=== PATIENT | male | born 1940 | race Caucasian/White ===

== ENCOUNTER 2018-09-30 08:43 | Inpatient (IN) ==
[2018-09-30] MEDS ORDERED: ONDANSETRON INJ 2 MG/ML 2 ML VIAL IV PRN (13:08)
[2018-09-30] MEDS ORDERED: POLYETHYLENE (MIRALAX) 17 GM PACK PO PRN (13:08)
[2018-09-30] MEDS ORDERED: ACETAMINOPHEN 325 MG TAB PO PRN (13:08)
--- NOTE | 2018-09-30 13:56 | History & Physical Report ---
Date of Service September 30, 2018 Assessment & Plan (1) Pneumonia: treated with Rocephin and Zithromax at [facility] no fever, WBC normal for two days will continue Rocephin and Zithromax for 5 day course total Duoneb only producing clear sputum, no blood (2) COPD exacerbation: no wheezing currently, reportedly had wheezing in ED at [facility] will continue Solu Medrol 40 q12, titrate to 40mg daily tomorrow Duoneb QID (3) Abnormal CT scan, chest: report of spiculated density in RLL, 2.8 x 2.8 x 5.5 h/o smoking 1ppd for many years will consult Dr. Hairston for recommendations discussed with Tamir Palacios after he and Dr. Hairston saw patient for now, will treat infection their office will arrange for repeat CT chest in a few months no hemoptysis, no weight loss (4) Chronic respiratory failure with hypoxia: on 2L chronically at home currently breathing stable, no distress (5) Atrial fibrillation: paced on EKG takes Amiodarone and Lopressor chronically hold Coumadin due to elevated INR (6) H/O cardiac pacemaker: paced (7) BPH (benign prostatic hyperplasia): continue Flomax (8) GERD (gastroesophageal reflux disease): continue Ranitidine (9) Supratherapeutic INR: no signs of bleeding unclear etiology, perhaps not eating well recently will hold Coumadin, repeat INR in the AM History of Present Illness Chief Complaint: I couldn't breathe Primary Care Provider: Carolann Skelton MD 78 yo male with history of COPD and chronic hypoxia, presented to [facility] due to two days of increased dyspnea, increased cough, sputum production. He denies any fever/chills or sweats. Reports that his appetite has been normal for him. No weakness. He has been moving bowels and urinating normally. He denies any significant weight loss in the past several months. He has a significant smoking history for one ppd for at least 40 years, says he quit when he was diagnosed with COPD. He denies any hemoptysis. At [facility] his WBC was normal, Cr was 1.0. A CXR, two views, shows bibasilar infiltrates. The right lower lobe appeared to have a spiculated consolidation concerning for malignancy. CT chest showed a 2.8 x 2.8 x 5.5 cm density that was a little more dense than fluid. A transfer was requested for [facility] since [facility] does not have pulmonology or thoracic surgery in house. Patient arrived in stable condition, no distress. Had no specific complaints except cough which was now non-productive and continued dyspnea. He had been treated with Rocephin and Zithromax at [facility]. Allergies Allergy/AdvReac Type Severity Reaction Status Date / Time No Known Allergies Allergy Unverified 05/22/15 19:34 Home Medications Home Medications Medication Instructions Recorded Confirmed Type ALBUTEROL SOLN (Ventolin Soln) 1 vial INHALATION 3-4XD PRN #375 05/22/15 History AMIODARONE HCL (PACERONE) 100 mg PO DAILY #30 05/22/15 History ASCORBIC ACID 500 mg PO DAILY #0 tab 05/22/15 History ASPIRIN (ASPIRIN EC) 81 mg PO DAILY #0 05/22/15 History Albuterol (Ventolin) 2 puff INHALATION Q4 PRN #18 05/22/15 History BUDESONIDE/FORMOTEROL FUMARATE 2 puff INHALATION BID #10 05/22/15 History (Symbicort 80/4.5 Inhaler) FERROUS SULFATE 325 mg PO DAILY #0 05/22/15 History Furosemide 40 mg PO DAILY #30 05/22/15 History Gabapentin 300 mg PO TID #90 05/22/15 History HYDROCORTISONE (PROCTOSOL HC) 1 applic IN 2-4XD PRN 7 Days 05/22/15 History #28.35 g LEVOTHYROXINE SODIUM 50 mcg PO DAILY #30 05/22/15 History MOMETASONE FUROATE (NASAL) 1 spray WALLY congestion #0 btl 05/22/15 History (NASONEX) Metoprolol Tartrate (Lopressor) 25 mg PO BID #30 05/22/15 History (Lopressor) POTASSIUM CHLORIDE MICROENCAPS 10 meq PO DAILY #30 05/22/15 History (POTASSIUM CHLORIDE ER) PRAVASTATIN SODIUM 40 mg PO HS #30 05/22/15 History Ranitidine HCl 150 mg PO DAILY #30 05/22/15 History TIOTROPIUM BROMIDE (Spiriva 1 puff INHALATION DAILY #30 05/22/15 History Handihaler) Tamsulosin HCl 0.4 mg PO DAILY #30 05/22/15 History WARFARIN SODIUM 3 mg PO QPM 90 Days #90 tab 05/22/15 History Levofloxacin 250 mg PO DAILY@11 7 Days #0 tab 05/28/15 Rx PREDNISONE (STERAPRED 12 DAY) 1 pkg PO UD #1 05/28/15 Rx Past Med/Surg History Medical History Atrial fibrillation COPD (chronic obstructive pulmonary disease) HTN (hypertension) Pacemaker Family History Other Heart disease Social History Current Living Situation: Alone Other Information That Helps Us Care for You: No Feels Safe at Home: Yes Safety Concerns: Feels Safe At This Time Smoking Status: Former smoker Tobacco Type: cigarettes Years Smoked: 40 Cigarettes per Day: 20 Do You Dip or Chew Tobacco: No Hx Alcohol Use: No Hx Substance Use: No Beliefs That Will Affect Care: None Preferred Language: Upper Sorbian Communication Ability: Effective Review of Systems All systems reviewed & are unremarkable except as noted in HPI & below Constitutional: no fever, no chills, no sweats, no fatigue and no weakness Respiratory: + cough, + dyspnea, + dyspnea on exertion, + sputum production and + wheezing; no hemoptysis Cardiovascular: + chest pain (lower left side, pain with cough), + dyspnea, + dyspnea at rest and + dyspnea on exertion; no orthopnea, no palpitations, no syncope and no edema Gastrointestinal: no abdominal pain, no nausea, no vomiting, no constipation and no diarrhea/loose stools Genitourinary (Male): no dysuria and no difficulty urinating Integumentary: no rash Physical Exam 2 Constitutional: well nourished and + thin; no acute distress Eyes: PERRL, conjunctivae normal, anicteric sclerae ENMT: external ear and nose normal, oropharynx normal Neck: trachea midline, no thyromegaly Respiratory: normal respiratory effort, normal percussion and + cough; no respiratory distress and does not use accessory muscles Auscultation: + diminished lung sounds and + crackles (right base) Cardiovascular: Rate/Rhythm: regular rate and regular rhythm Heart Sounds: normal S1 and normal S2; no murmur Vessels: normal peripheral pulses; no JVD Extremities: normal capillary refill Gastrointestinal (Abdomen): normal bowel sounds, soft, nontender, no hepatosplenomegaly Musculoskeletal: no cyanosis or clubbing, extremities motor strength 5/5 Skin: no rashes, warm and dry Neurologic: patellar DTR's 2+ bilat, sensation intact and PERRL, EOMI, accommodation nl, no face palsy, no dysarthria Lymphatic: no cervical or axillary lymphadenopathy Results & Data Laboratory Results Laboratory Results - last 24 hr 09/30/18 09/30/18 14:19 Unknown PT 70.0 H INR 7.8 H* Nasal Screen MRSA (PCR) Negative Medications Administered Current Inpatient Medications Acetaminophen (Tylenol) 650 mg PO Q4H PRN PRN Reason: pain/fever Stop: 10/30/18 13:07 Albuterol (Duoneb) 3 ml NEB Q2R PRN PRN Reason: Dyspnea Stop: 10/30/18 13:20 Albuterol (Duoneb) 3 ml NEB QIDR EMI Stop: 10/30/18 15:59 Last Admin: 09/30/18 19:19 Dose: 3 ml Amiodarone HCl (Cordarone) 100 mg PO QAM EMI Stop: 10/31/18 08:59 Aspirin (Ecotrin Ectab) 81 mg PO QAM EMI Stop: 10/31/18 08:59 Azithromycin (Zithromax) 500 mg PO QAM EMI Stop: 10/08/18 08:59 Furosemide (Lasix) 40 mg PO QAM EMI Stop: 10/31/18 08:59 Gabapentin (Neurontin) 300 mg PO TID EMI Stop: 10/30/18 13:59 Last Admin: 09/30/18 19:32 Dose: 300 mg Ceftriaxone Sodium 1,000 mg/ (Dextrose) 60 mls @ 100 mls/hr IV DAILY EMI Stop: 10/08/18 08:59 Methylprednisolone 40 mg/ (Syringe) 0.64 mls @ 1.5 mls/min IV Q12 EMI Stop: 10/30/18 20:59 Last Admin: 09/30/18 19:25 Dose: 1.5 mls/min Levothyroxine Sodium (Synthroid) 50 mcg PO DAILYBB EMI Stop: 10/31/18 06:29 Metoprolol Tartrate (Lopressor) 25 mg PO BID EMI Stop: 10/30/18 20:59 Last Admin: 09/30/18 19:32 Dose: 25 mg Ondansetron HCl (Zofran) 4 mg IV Q6H PRN PRN Reason: Nausea Stop: 10/30/18 13:07 Polyethylene Glycol (Miralax Powder Packet) 17 gm PO DAILY PRN PRN Reason: Constipation Stop: 10/30/18 13:07 Ranitidine HCl (Zantac) 150 mg PO QAM EMI Stop: 10/31/18 08:59 Tamsulosin HCl (Flomax) 0.4 mg PO QAM [facility] Stop: 10/31/18 08:59 Code Status & VTE Plan Code Status full code VTE Prophylaxis Plan VTE Prophylaxis will be ordered: Yes
[2018-09-30 14:55] LABS: INR 7.8 (0.9-1.1)
[2018-09-30] MEDS: ALBUT/IPRATROP 3MG/0.5MG NEB 3 ML VIAL NEB SCH ×2 (15:19→19:19)
[2018-09-30] MEDS: GABAPENTIN 300 MG CAP PO SCH ×2 (15:41→19:32)
[2018-09-30] MEDS: methylPREDNISolone 40 MG in SYRINGE 0 ML IV SCH (19:25)
[2018-09-30] MEDS: METOPROLOL TARTRATE 25 MG TAB PO SCH (19:32)
--- NOTE | 2018-09-30 19:59 | XRay Report ---
XR chest 1V portable CLINICAL HISTORY: sob dyspnea COMPARISON STUDY: 09/29/2018 Katie Ward FINDINGS: Emphysematous and chronic fibrotic change throughout both hemithoraces considered stable. M ild stable cardiomegaly. Prior median sternotomy. Bipolar cardiac pacemaker. Slight blunting of the l ateral costophrenic angles unchanged. IMPRESSION: Chronic and emphysematous change. No acute or interval process. The above report was generated using voice recognition software. It may contain grammatical, syntax or spelling errors. Electronically signed by: Orlando Webster M.D. 09/30/2018 7:58 PM
[2018-09-30] MEDS ORDERED: FUROSEMIDE 20 MG in SYRINGE 0 ML IV ONE (20:15)
--- NOTE | 2018-09-30 21:39 | Consultation Report ---
DATE OF CONSULTATION: 09/30/2018 REASON FOR CONSULTATION: Lung nodules. HISTORY OF PRESENT ILLNESS: This is a 78-year-old male who has a very long history of cigarette smoking with terrible bullous emphysema who presented to [facility] with treatment for an upper respiratory infection. It is unclear whether this was felt to be a pneumonia or simply an exacerbation of his COPD. A CT scan was obtained and some abnormalities were noted and I was asked to evaluate him from a surgical standpoint. PAST MEDICAL HISTORY: 1. Gastroesophageal reflux disease. 2. Atrial fibrillation. 3. Benign prostatic hypertrophy. 4. Chronic obstructive pulmonary disease with bullous emphysema and chronic oxygen use. 5. Hypothyroidism. 6. Hyperlipidemia. PAST SURGICAL HISTORY: 1. Insertion of a left infraclavicular pacemaker. 2. Open heart surgery with mitral and tricuspid valve surgery. ALLERGIES: No known drug allergies. MEDICATIONS: 1. Inhalers. 2. Amiodarone. 3. Aspirin. 4. Symbicort. 5. Ferrous sulfate. 6. Gabapentin. 7. Lasix. 8. Levofloxacin. 9. Synthroid. 10. Metoprolol. 11. Nasonex. 12. Pravastatin. 13. Potassium supplements. 14. Prednisone (tapering dose). 15. Ranitidine. 16. Flomax. 17. Spiriva. 18. Coumadin. SOCIAL HISTORY: The patient worked in a [employer]. He smoked from age 17 to probably his 60s. He has severe emphysema. He is . He lives in [place] in an apartment. He is followed by Dr. Carolann Skelton. FAMILY MEDICAL HISTORY: The patient is the youngest of 11. He had 7 brothers, all of whom have , mostly due to heart. He has 2 sisters, still living. He is a poor historian, does not know why they . His father at age 50 from his "heart." He thinks his mother may have in her 70s from her heart. He has 3 children. He states they are "not helping," but he could not specify as to what their medical problems were. REVIEW OF SYSTEMS: The patient is actually painfully thin, but states he has not lost any weight. He has been more short of breath. I am quite concerned about his oxygen levels. He states he has been eating "okay." He denies nausea or vomiting. He has had no neurologic events, although he appears a bit confused to me and disoriented. He denies any hearing or visual changes. He has had no GI or symptoms. He has had no skin breakdown. PHYSICAL EXAMINATION: GENERAL: This is a 5-feet 5-inch, 120-pound male who is awake and alert, but a bit disoriented. HEENT: He wears glasses. His sclerae are pale but anicteric. He has bilateral arcus senilis. He has no nasolabial flattening. He has bilateral denture plates. His dentures do not fit well. Makes it is a bit difficult to understand him. NECK: He has no carotid bruits. He has no neck vein distention or thyromegaly. I detect no lymphadenopathy. LUNGS: He has markedly decreased breath sounds bilaterally. HEART: He has a regular rate and rhythm of his heart with a well-healed sternotomy incision with no click. He appears to have a regular rhythm but it may be paced. He has a well-healed left infraclavicular pacemaker. ABDOMEN: Flat, soft, nontender. EXTREMITIES: He has no peripheral edema or joint effusions or difficulty palpating pulses. NEUROLOGIC: He moves all extremities to command. DATA: I reviewed his CT scan and he has marked bullous emphysema, especially in the lower lobes. ASSESSMENT AND PLAN: It is unclear to me what these abnormalities represent. They could simply be inflammatory. Problem is they are bilateral and also the fact of the matter is this patient would not tolerate anything; he is so weak and essentially emaciated with terrible lungs. On 3 liters, his saturations are adequate, but he is really working to talk. He is using his accessory muscles. At this point, I would treat him with antibiotics and plan on repeating his CT scan in the future; however, it really does not matter what he has, I do not think he is a candidate for anything. I think a needle biopsy with a pneumothorax could prove problematic.
[2018-09-30] MEDS: ALBUT/IPRATROP 3MG/0.5MG NEB 3 ML VIAL NEB PRN (22:56)
[2018-10-01] MEDS: ALBUT/IPRATROP 3MG/0.5MG NEB 3 ML VIAL NEB PRN (05:30)
[2018-10-01] MEDS: LEVOTHYROXINE SODIUM 50 MCG TABLET PO SCH (06:06)
[2018-10-01 07:11] LABS: Hematocrit (blood only) 35.2 % (42-52); Immature Granulocytes # (auto) 0.06 K/uL (0.00-0.02); Immature Granulocytes % (auto) 0.5 %; Mean Corpuscular Hgb Conc 31.3 g/dL (32-36); Mean Platelet Volume 10.6 fL (7.4-10.4); Monocytes # (auto) 0.87 K/uL (0.11-0.59); Neutrophils # (auto) 10.99 K/uL (1.4-6.5); Neutrophils % (auto) 88.5 %; Platelet Count 241 K/uL (130-400); RDW Coefficient of Variation 13.4 % (11.5-14.5); RDW Standard Deviation 53.2 fL (36.4-46.3); Red Blood Count 3.29 M/uL (4.7-6.1); White Blood Count 12.42 K/uL (4.8-10.8)
[2018-10-01] MEDS: ALBUT/IPRATROP 3MG/0.5MG NEB 3 ML VIAL NEB SCH ×4 (07:12→19:32)
[2018-10-01 07:25] LABS: Prothrombin Time 48.8 Seconds (9.0-12.0)
[2018-10-01 07:33] LABS: INR 5.3 (0.9-1.1)
[2018-10-01 07:46] LABS: Albumin Level 2.7 gm/dl (3.4-5.0); BUN Creatinine Ratio 43.9 (10-20); Calcium 8.6 mg/dl (8.5-10.1); Creatinine Clr Calc Pharmacy 41.1 ml/min; Est GFR (African American) 70.3; Est GFR (Non-African American) 60.6
[2018-10-01 07:47] LABS: Albumin Globulin Ratio 0.8 (0.9-2); Bilirubin,Total 0.6 mg/dl (0.2-1); Globulin 3.4 gm/dl (2.5-4.0); Total Protein 6.1 gm/dl (6.4-8.2)
[2018-10-01] MEDS: AMIODARONE 200 MG TAB PO SCH (07:52)
[2018-10-01] MEDS: FUROSEMIDE 40 MG TAB PO SCH (07:52)
[2018-10-01] MEDS: AZITHROMYCIN 250 MG TAB PO SCH (07:54)
[2018-10-01] MEDS: ASPIRIN 81 MG ECTAB PO SCH (07:54)
[2018-10-01] MEDS: METOPROLOL TARTRATE 25 MG TAB PO SCH ×2 (07:54→20:55)
[2018-10-01] MEDS: GABAPENTIN 300 MG CAP PO SCH ×3 (07:54→20:55)
[2018-10-01] MEDS: TAMSULOSIN HCL 0.4 MG CAP PO SCH (07:55)
[2018-10-01] MEDS: methylPREDNISolone 40 MG in SYRINGE 0 ML IV SCH (08:28)
[2018-10-01] MEDS: cefTRIAXone SODIUM 1,000 MG in DEXTROSE 5% 50 ML IV SCH (08:28)
--- NOTE | 2018-10-01 13:39 | Family Medicine Progress Note ---
Date of Service October 01, 2018 Assessment & Plan (1) Pneumonia: treated with Rocephin and Zithromax at [facility]. Will continue Rocephin and Zithromax for 5 day course total -Duonebs as needed. -sputum culture -flutter valve/chest physiotherapy -will wean o2 as tolerated -pt/ot (2) COPD exacerbation: no wheezing currently, reportedly had wheezing in ED at [facility] -switched from solumedrol 40mg q12 to prednisone 40mg -Duoneb QID -pt/ot (3) Abnormal CT scan, chest: report of spiculated density in RLL, 2.8 x 2.8 x 5.5 h/o smoking 1ppd for ~ 20years Appreciate thoracic surgery recs- Dr. Hairston advises f/u outpt in a few months for repeat CT. Otherwise NTD. (4) Chronic respiratory failure with hypoxia: on 2L chronically at home currently breathing stable, no distress (5) Atrial fibrillation: paced on EKG takes Amiodarone and Lopressor chronically continue to hold Coumadin due to elevated INR (6) H/O cardiac pacemaker: paced (7) BPH (benign prostatic hyperplasia): continue Flomax (8) GERD (gastroesophageal reflux disease): continue Ranitidine (9) Supratherapeutic INR: -no signs of bleeding currently. -Called Dr. Skelton's office- He is on warfarin 5mg for 6 days and takes half a tabon Sundays every week. Last INR was 1/10 at a level of 1.01. -unclear etiology of currently supratherapeutic INR, perhaps not eating well recently will hold Coumadin, repeat INR in the AM (10) History of hemoptysis: -as above for supratherapeutic INR -will hold coumadin -assess need later for possible endoscopy (11) History of melena: -pt has a history of hemorrhoids. However, could be a sign of GI malignancy. -Per Dr. Skelton's office, 2011 colonoscopy showed no masses but medium sized external hemorrhoids with no evidence of thrombosis. -FOBT ordered today. Supervising Physician Co-Signing Physician Notes Patient seen and examined with Dr. Swanson. Agree with history, exam findings, assessment and plan as outlined with the following changes/updates: In brief, Mr. Giles is a 78 year old male transferred from [facility] for pneumonia and abnormal CT of the chest. Reviewed H&P. VS reviewed and stable. Labs reviewed. 1.Pneumonia. continue rocephin and azithro.. duonebs. Flutter valve. Wean O2 as able. 2. Lung mass. Some mild hemoptysis. Appreciate Dr. Sharma input. NTD. Repeat CT in a few months and follow up as an outpatient. 3.chronic resp failure. 2L O2 at home. Wean down to home dose as able. 4.supratherapeutic INR. Holding Coumadin. Home dose is 5mg Fri-Friday. 2.5mg Sat. Consider restarting at a lower TWD once INR starts to drift down to therapeutic range. 5.Elevated BUN. ?GI bleed. Recent c-scope in 2011 with external hemorrhoids. Other chronic issues stable. Dispo: pending clinical improvement. Subjective Mr. Giles states he's doing better today despite still having some SOB. Also admits to dark brown blood in stool for some time as well as periodic clots and blood when he coughs up phlegm. Has hx of hemorrhoids as well as a smoking history of 20 pack years. States he follows with Dr. Redd in [place] who put him on warfarin as well. Denies hematuria or hemoptysis. Physical Exam 2 Vital Signs (Past 24 Hours): Last Vital Signs Temp 36.8 C 10/01/18 07:30 Pulse 81 10/01/18 11:05 Resp 18 10/01/18 11:05 BP 111/57 L 10/01/18 07:30 Pulse Ox 96 10/01/18 11:05 General: Alert, oriented thin frail gentleman sitting in chair near bed. HEENT: NC/AT, PERRL, EOMI, oropharynx moist. Chest: Nontender to palpation. CV: RRR, Normal s1, s2. No murmurs appreciated Resp: Breath sounds decreased bilaterally, no increased effort of breathing. No crackles/rhonchi/rales. Abdomen: Firm, nontender, nondistended. No guarding. Extremities: No edema. Results & Data Laboratory Results Laboratory Results - last 24 hr 10/01/18 10/01/18 10/01/18 06:43 06:43 06:43 WBC 12.42 H RBC 3.29 L Hgb 11.0 L Hct 35.2 L MCV 107.0 H MCH 33.4 MCHC 31.3 L RDW Std Deviation 53.2 H RDW Coeff of Dorcas 13.4 Plt Count 241 MPV 10.6 H Immature Gran % (Auto) 0.5 Neut % (Auto) 88.5 Lymph % (Auto) 4.0 Piatt % (Auto) 7.0 Eos % (Auto) 0.0 Baso % (Auto) 0.0 Immature Gran # (Auto) 0.06 H Neut # (Auto) 10.99 H Lymph # (Auto) 0.50 L Piatt # (Auto) 0.87 H Eos # (Auto) 0.00 Baso # (Auto) 0.00 PT 48.8 H INR 5.3 H Sodium 137 Potassium 5.0 Chloride 101 Carbon Dioxide 34 H Anion Gap 2.0 L BUN 50 H Creatinine 1.15 Est Cr Clr Drug Dosing 41.1 Est GFR ( Amer) 70.3 Est GFR (Non-Af Amer) 60.6 BUN/Creatinine Ratio 43.9 H Glucose 135 H Calcium 8.6 Total Bilirubin 0.6 AST 36 ALT 27 Alkaline Phosphatase 59 Total Protein 6.1 L Albumin 2.7 L Globulin 3.4 Albumin/Globulin Ratio 0.8 L Medications Administered Home Medications ALBUTEROL SOLN (Ventolin Soln) 1 vial INHALATION 3-4XD PRN #375 05/22/15 [ History] AMIODARONE HCL (PACERONE) 100 mg PO DAILY #30 05/22/15 [History] ASCORBIC ACID 500 mg PO DAILY #0 tab 05/22/15 [History] ASPIRIN (ASPIRIN EC) 81 mg PO DAILY #0 05/22/15 [History] Albuterol (Ventolin) 2 puff INHALATION Q4 PRN #18 05/22/15 [History] BUDESONIDE/FORMOTEROL FUMARATE (Symbicort 80/4.5 Inhaler) 2 puff INHALATION BID #10 05/22/15 [History] FERROUS SULFATE 325 mg PO DAILY #0 05/22/15 [History] Furosemide 40 mg PO DAILY #30 05/22/15 [History] Gabapentin 300 mg PO TID #90 05/22/15 [History] HYDROCORTISONE (PROCTOSOL HC) 1 applic NC 2-4XD PRN 7 Days #28.35 g 05/22/15 [ History] LEVOTHYROXINE SODIUM 50 mcg PO DAILY #30 05/22/15 [History] MOMETASONE FUROATE (NASAL) (NASONEX) 1 spray WALLY congestion #0 btl 05/22/15 [ History] Metoprolol Tartrate (Lopressor) (Lopressor) 25 mg PO BID #30 05/22/15 [History] POTASSIUM CHLORIDE MICROENCAPS (POTASSIUM CHLORIDE ER) 10 meq PO DAILY #30 05/22 [History] PRAVASTATIN SODIUM 40 mg PO HS #05/22/15 [History] Ranitidine HCl 150 mg PO DAILY #30 05/22/15 [History] TIOTROPIUM BROMIDE (Spiriva Handihaler) 1 puff INHALATION DAILY #05/22/15 [ History] Tamsulosin HCl 0.4 mg PO DAILY #30 05/22/15 [History] WARFARIN SODIUM 3 mg PO QPM 90 Days #90 tab 05/22/15 [History] Levofloxacin 250 mg PO DAILY@11 7 Days #0 tab 05/28/15 [Rx] PREDNISONE (STERAPRED 12 DAY) 1 pkg PO UD #1 05/28/15 [Rx] Active Medications Acetaminophen (Tylenol) 650 mg PO Q4H PRN PRN Reason: pain/fever Stop: 10/30/18 13:07 Albuterol (Duoneb) 3 ml NEB Q2R PRN PRN Reason: Dyspnea Stop: 10/30/18 13:20 Last Admin: 10/01/18 05:30 Dose: 3 ml Albuterol (Duoneb) 3 ml NEB QIDR [facility] Stop: 10/30/18 15:59 Last Admin: 10/01/18 15:33 Dose: 3 ml Amiodarone HCl (Cordarone) [address] [facility] Stop: 10/31/18 08:59 Last Admin: 10/01/18 07:52 Dose: 100 mg Aspirin (Ecotrin Ectab) [address] [facility] Stop: 10/31/18 08:59 Last Admin: 10/01/18 07:54 Dose: 81 mg Azithromycin (Zithromax) [address] [facility] Stop: 10/08/18 08:59 Last Admin: 10/01/18 07:54 Dose: 500 mg Furosemide (Lasix) 40 mg PO QAM EMI Stop: 10/31/18 08:59 Last Admin: 10/01/18 07:52 Dose: 40 mg Gabapentin (Neurontin) 300 mg PO TID [facility] Stop: 10/30/18 13:59 Last Admin: 10/01/18 13:31 Dose: 300 mg Ceftriaxone Sodium 1,000 mg/ (Dextrose) 60 mls @ 100 mls/hr IV DAILY EMI Stop: 10/08/18 08:59 Last Infusion: 10/01/18 09:16 Dose: Infused Levothyroxine Sodium (Synthroid) 50 mcg PO DAILYBB EMI Stop: 10/31/18 06:29 Last Admin: 10/01/18 06:06 Dose: 50 mcg Metoprolol Tartrate (Lopressor) 25 mg PO BID [facility] Stop: 10/30/18 20:59 Last Admin: 10/01/18 07:54 Dose: 25 mg Ondansetron HCl (Zofran) 4 mg IV Q6H PRN PRN Reason: Nausea Stop: 10/30/18 13:07 Polyethylene Glycol (Miralax Powder Packet) 17 gm PO DAILY PRN PRN Reason: Constipation Stop: 10/30/18 13:07 Prednisone (Prednisone) 40 mg PO DAILY EMI Stop: 11/01/18 08:59 Ranitidine HCl (Zantac) 150 mg PO QAM [facility] Stop: 10/31/18 08:59 Last Admin: 10/01/18 07:54 Dose: 150 mg Tamsulosin HCl (Flomax) 0.4 mg PO QAM [facility] Stop: 10/31/18 08:59 Last Admin: 10/01/18 07:55 Dose: 0.4 mg Resident Activity Tracking Resident Involvement: Resident Care Provided Care Provided: Adult Hospital Medicine
[2018-10-02 05:49] LABS: Eosinophils # (auto) 0.01 K/uL (0-0.5); Eosinophils % (auto) 0.1 %; Hematocrit (blood only) 34.4 % (42-52); Immature Granulocytes # (auto) 0.04 K/uL (0.00-0.02); Immature Granulocytes % (auto) 0.3 %; Lymphocytes # (auto) 0.66 K/uL (1.2-3.4); Lymphocytes % (auto) 5.3 %; Mean Corpuscular Volume 106.8 fL (80-100); Mean Platelet Volume 10.7 fL (7.4-10.4); Monocytes # (auto) 1.17 K/uL (0.11-0.59); Monocytes % (auto) 9.4 %; Neutrophils # (auto) 10.57 K/uL (1.4-6.5); Neutrophils % (auto) 84.9 %; Platelet Count 237 K/uL (130-400); RDW Coefficient of Variation 13.5 % (11.5-14.5); RDW Standard Deviation 52.9 fL (36.4-46.3); Red Blood Count 3.22 M/uL (4.7-6.1); White Blood Count 12.45 K/uL (4.8-10.8)
[2018-10-02] MEDS: LEVOTHYROXINE SODIUM 50 MCG TABLET PO SCH (05:57)
[2018-10-02 06:11] LABS: INR 2.6 (0.9-1.1); Prothrombin Time 24.6 Seconds (9.0-12.0)
[2018-10-02 06:15] LABS: BUN Creatinine Ratio 52.2 (10-20); Calcium 8.3 mg/dl (8.5-10.1); Creatinine Clr Calc Pharmacy 45.9 ml/min; Est GFR (African American) 80.3; Est GFR (Non-African American) 69.3; Potassium 4.9 mmol/L (3.5-5.1)
[2018-10-02] MEDS: ALBUT/IPRATROP 3MG/0.5MG NEB 3 ML VIAL NEB SCH ×4 (07:06→19:07)
[2018-10-02] MEDS: cefTRIAXone SODIUM 1,000 MG in DEXTROSE 5% 50 ML IV SCH (07:55)
[2018-10-02] MEDS: GABAPENTIN 300 MG CAP PO SCH ×3 (07:55→20:53)
[2018-10-02] MEDS: METOPROLOL TARTRATE 25 MG TAB PO SCH ×2 (07:55→20:54)
[2018-10-02] MEDS: ASPIRIN 81 MG ECTAB PO SCH (07:56)
[2018-10-02] MEDS: AMIODARONE 200 MG TAB PO SCH (07:56)
[2018-10-02] MEDS: TAMSULOSIN HCL 0.4 MG CAP PO SCH (07:56)
[2018-10-02] MEDS: FUROSEMIDE 40 MG TAB PO SCH (07:57)
[2018-10-02] MEDS: predniSONE 20 MG TAB PO SCH (07:57)
[2018-10-02] MEDS: AZITHROMYCIN 250 MG TAB PO SCH (07:57)
--- NOTE | 2018-10-02 17:45 | Family Medicine Progress Note ---
Date of Service October 02, 2018 Assessment & Plan (1) Pneumonia: 78yo gentleman with pneumonia in setting of COPD exacerbation with concern for lung malignancy noted on CT. treated with Rocephin and Zithromax at [facility]. Will continue Rocephin and Zithromax for 5 day course total -Duonebs as needed. -sputum culture -flutter valve/chest physiotherapy -will wean o2 as tolerated -pt/ot (2) COPD exacerbation: no wheezing currently, reportedly had wheezing in ED at [facility] -switched from solumedrol 40mg q12 to prednisone 40mg -Duoneb QID -pt/ot (3) Abnormal CT scan, chest: report of spiculated density in RLL, 2.8 x 2.8 x 5.5 h/o smoking 1ppd for ~ 20years Appreciate thoracic surgery recs- Dr. Hairston advises f/u outpt in a few months for repeat CT. Otherwise NTD. (4) Chronic respiratory failure with hypoxia: on 2L chronically at home currently breathing stable, no distress (5) Atrial fibrillation: paced on EKG takes Amiodarone and Lopressor chronically continue to hold Coumadin due to elevated INR (6) H/O cardiac pacemaker: paced (7) BPH (benign prostatic hyperplasia): continue Flomax (8) GERD (gastroesophageal reflux disease): continue Ranitidine (9) Supratherapeutic INR: -no signs of bleeding currently. -Called Dr. Skelton's office- He is on warfarin 5mg for 6 days and takes half a tabon Sundays every week. Last INR was 1/10 at a level of 1.01. -Started on warfarin 4mg Oct 02 (dose decreased by 10%). Trend INRs -unclear etiology of currently supratherapeutic INR, perhaps not eating well recently (10) History of hemoptysis: -as above for supratherapeutic INR -will hold coumadin -assess need later for possible endoscopy (11) History of melena: -pt has a history of hemorrhoids. However, could be a sign of GI malignancy. -Per Dr. Skelton's office, 2011 colonoscopy showed no masses but medium sized external hemorrhoids with no evidence of thrombosis. -FOBT pending (12) Constipation: -started colace and miralax (13) Trouble swallowing: speech swallow eval. Supervising Physician Co-Signing Physician Notes Attending attestation Pt seen and examined in concert with Dr. Swanson. In agreement with the documented findings as noted in the resident documentation with any exceptions or additions as noted here. Patient reports mildly improved shortness of breath, though overall still fatigued and with productive cough. On examination, decreased breath sounds throughout with mild B/L LL rales. Abd NT/ND BS +ve COPD exacerbation in the setting of PNA � continue rocephin and Zithromax. S/S evaluation for ? aspiration episodes. Continue inhaler therapy and taper O2 as tolerated to baseline. Supratherapeutic INR with anemia � FOBT pending (deferred today), can restart at 4mg when negative Else per resident documentation above. Subjective Complaining of constipation. Otherwise no new issues except nursing concern for aspiration. Denies chest pain, SOB, abdominal pain. Review of Systems All systems reviewed & are unremarkable except as noted in HPI & below Physical Exam 2 Vital Signs (Past 24 Hours): Last Vital Signs Temp 36.9 C 10/02/18 15:35 Pulse 80 10/02/18 15:35 Resp 22 10/02/18 15:35 BP 124/70 10/02/18 15:35 Pulse Ox 98 10/02/18 15:35 General: Alert, oriented thin frail gentleman HEENT: NC/AT, PERRL, EOMI, oropharynx moist. Chest: Nontender to palpation. CV: RRR, Normal s1, s2. No murmurs appreciated Resp: Breath sounds decreased bilaterally, no increased effort of breathing. No crackles/rhonchi/rales. Abdomen: Firm, nontender, nondistended. No guarding. Extremities: No edema. Results & Data Laboratory Results Laboratory Results - last 24 hr 10/02/18 10/02/18 10/02/18 05:25 05:25 05:25 WBC 12.45 H RBC 3.22 L Hgb 11.0 L Hct 34.4 L MCV 106.8 H MCH 34.2 H MCHC 32.0 RDW Std Deviation 52.9 H RDW Coeff of Dorcas 13.5 Plt Count 237 MPV 10.7 H Immature Gran % (Auto) 0.3 Neut % (Auto) 84.9 Lymph % (Auto) 5.3 [place] % (Auto) 9.4 Eos % (Auto) 0.1 Baso % (Auto) 0.0 Immature Gran # (Auto) 0.04 H Neut # (Auto) 10.57 H Lymph # (Auto) 0.66 L [place] # (Auto) 1.17 H Eos # (Auto) 0.01 Baso # (Auto) 0.00 PT 24.6 H INR 2.6 H Sodium 140 Potassium 4.9 Chloride 102 Carbon Dioxide 36 H Anion Gap 3.0 BUN 54 H Creatinine 1.03 Est Cr Clr Drug Dosing 45.9 Est GFR ( Amer) 80.3 Est GFR (Non-Af Amer) 69.3 BUN/Creatinine Ratio 52.2 H Glucose 98 Calcium 8.3 L Medications Administered Home Medications ALBUTEROL SOLN (Ventolin Soln) 1 vial INHALATION 3-4XD PRN #375 05/22/15 [ History] AMIODARONE HCL (PACERONE) 100 mg PO DAILY #30 05/22/15 [History] ASCORBIC ACID 500 mg PO DAILY #0 tab 05/22/15 [History] ASPIRIN (ASPIRIN EC) 81 mg PO DAILY #0 05/22/15 [History] Albuterol (Ventolin) 2 puff INHALATION Q4 PRN #18 05/22/15 [History] BUDESONIDE/FORMOTEROL FUMARATE (Symbicort 80/4.5 Inhaler) 2 puff INHALATION BID #10 05/22/15 [History] FERROUS SULFATE 325 mg PO DAILY #0 05/22/15 [History] Furosemide 40 mg PO DAILY #30 05/22/15 [History] Gabapentin 300 mg PO TID #90 05/22/15 [History] HYDROCORTISONE (PROCTOSOL HC) 1 applic MI 2-4XD PRN 7 Days #28.35 g 05/22/15 [ History] LEVOTHYROXINE SODIUM 50 mcg PO DAILY #30 05/22/15 [History] MOMETASONE FUROATE (NASAL) (NASONEX) 1 spray WALLY congestion #0 btl 05/22/15 [ History] Metoprolol Tartrate (Lopressor) (Lopressor) 25 mg PO BID #30 05/22/15 [History] POTASSIUM CHLORIDE MICROENCAPS (POTASSIUM CHLORIDE ER) 10 meq PO DAILY #30 05/22 [History] PRAVASTATIN SODIUM 40 mg PO HS #30 05/22/15 [History] Ranitidine HCl 150 mg PO DAILY #30 05/22/15 [History] TIOTROPIUM BROMIDE (Spiriva Handihaler) 1 puff INHALATION DAILY #30 05/22/15 [ History] Tamsulosin HCl 0.4 mg PO DAILY #30 05/22/15 [History] WARFARIN SODIUM 3 mg PO QPM 90 Days #90 tab 05/22/15 [History] Levofloxacin 250 mg PO DAILY@11 7 Days #0 tab 05/28/15 [Rx] PREDNISONE (STERAPRED 12 DAY) 1 pkg PO UD #1 05/28/15 [Rx] Active Medications Acetaminophen (Tylenol) 650 mg PO Q4H PRN PRN Reason: pain/fever Stop: 10/30/18 13:07 Last Admin: 10/02/18 05:57 Dose: 650 mg Albuterol (Duoneb) 3 ml NEB Q2R PRN PRN Reason: Dyspnea Stop: 10/30/18 13:20 Last Admin: 10/01/18 05:30 Dose: 3 ml Albuterol (Duoneb) 3 ml NEB QIDR [facility] Stop: 10/30/18 15:59 Last Admin: 10/02/18 19:07 Dose: 3 ml Amiodarone HCl (Cordarone) 100 mg PO QAM [facility] Stop: 10/31/18 08:59 Last Admin: 10/02/18 07:56 Dose: 100 mg Aspirin (Ecotrin Ectab) 81 mg PO QAM [facility] Stop: 10/31/18 08:59 Last Admin: 10/02/18 07:56 Dose: 81 mg Azithromycin (Zithromax) 500 mg PO QAM [facility] Stop: 10/08/18 08:59 Last Admin: 10/02/18 07:57 Dose: 500 mg Furosemide (Lasix) 40 mg PO QAM [facility] Stop: 10/31/18 08:59 Last Admin: 10/02/18 07:57 Dose: 40 mg Gabapentin (Neurontin) 300 mg PO TID [facility] Stop: 10/30/18 13:59 Last Admin: 10/02/18 20:53 Dose: 300 mg Ceftriaxone Sodium 1,000 mg/ (Dextrose) 60 mls @ 100 mls/hr IV DAILY [facility] Stop: 10/08/18 08:59 Last Infusion: 10/02/18 08:50 Dose: Infused Levothyroxine Sodium (Synthroid) 50 mcg PO DAILYBB [facility] Stop: 10/31/18 06:29 Last Admin: 10/02/18 05:57 Dose: 50 mcg Metoprolol Tartrate (Lopressor) 25 mg PO BID [facility] Stop: 10/30/18 20:59 Last Admin: 10/02/18 20:54 Dose: 25 mg Ondansetron HCl (Zofran) 4 mg IV Q6H PRN PRN Reason: Nausea Stop: 10/30/18 13:07 Polyethylene Glycol (Miralax Powder Packet) 17 gm PO DAILY PRN PRN Reason: Constipation Stop: 10/30/18 13:07 Polyethylene Glycol (Miralax Powder Packet) 17 gm PO DAILY [facility] Stop: 11/02/18 08:59 Prednisone (Prednisone) 40 mg PO DAILY [facility] Stop: 11/01/18 08:59 Last Admin: 10/02/18 07:57 Dose: 40 mg Ranitidine HCl (Zantac) 150 mg PO QAM [facility] Stop: 10/31/18 08:59 Last Admin: 10/02/18 07:57 Dose: 150 mg Tamsulosin HCl (Flomax) 0.4 mg PO QAM [facility] Stop: 10/31/18 08:59 Last Admin: 10/02/18 07:56 Dose: 0.4 mg Warfarin Sodium (Coumadin) 4 mg PO DAILY@1600 [facility] Stop: 11/02/18 15:59
[2018-10-02] MEDS ORDERED: DOCUSATE SODIUM 100 MG CAP PO ONE (21:02)
[2018-10-02] MEDS ORDERED: WARFARIN SOD 4 MG TAB PO ONE (21:10)
[2018-10-03] MEDS: LEVOTHYROXINE SODIUM 50 MCG TABLET PO SCH (06:03)
[2018-10-03 06:56] LABS: Eosinophils # (auto) 0.06 K/uL (0-0.5); Eosinophils % (auto) 0.4 %; Hematocrit (blood only) 36.8 % (42-52); Hemoglobin 11.5 g/dL (14.0-18.0); Immature Granulocytes # (auto) 0.07 K/uL (0.00-0.02); Immature Granulocytes % (auto) 0.5 %; Lymphocytes # (auto) 1.39 K/uL (1.2-3.4); Lymphocytes % (auto) 10.2 %; Mean Corpuscular Hgb Conc 31.3 g/dL (32-36); Mean Corpuscular Volume 107.3 fL (80-100); Mean Platelet Volume 10.4 fL (7.4-10.4); Monocytes # (auto) 1.48 K/uL (0.11-0.59); Monocytes % (auto) 10.9 %; Neutrophils # (auto) 10.58 K/uL (1.4-6.5); Platelet Count 273 K/uL (130-400); RDW Coefficient of Variation 13.3 % (11.5-14.5); RDW Standard Deviation 52.5 fL (36.4-46.3); Red Blood Count 3.43 M/uL (4.7-6.1); White Blood Count 13.58 K/uL (4.8-10.8)
[2018-10-03 07:09] LABS: INR 1.4 (0.9-1.1); Prothrombin Time 14.2 Seconds (9.0-12.0)
[2018-10-03] MEDS: ALBUT/IPRATROP 3MG/0.5MG NEB 3 ML VIAL NEB SCH ×4 (07:22→18:47)
[2018-10-03 07:26] LABS: BUN Creatinine Ratio 50.2 (10-20); Calcium 8.3 mg/dl (8.5-10.1); Creatinine Clr Calc Pharmacy 48.7 ml/min; Est GFR (African American) 86.3; Est GFR (Non-African American) 74.5; Potassium 4.5 mmol/L (3.5-5.1)
[2018-10-03] MEDS: TAMSULOSIN HCL 0.4 MG CAP PO SCH (08:10)
[2018-10-03] MEDS: ASPIRIN 81 MG ECTAB PO SCH (08:10)
[2018-10-03] MEDS: AMIODARONE 200 MG TAB PO SCH (08:10)
[2018-10-03] MEDS: AZITHROMYCIN 250 MG TAB PO SCH (08:10)
[2018-10-03] MEDS: GABAPENTIN 300 MG CAP PO SCH ×3 (08:11→20:49)
[2018-10-03] MEDS: METOPROLOL TARTRATE 25 MG TAB PO SCH ×2 (08:11→20:48)
[2018-10-03] MEDS: FUROSEMIDE 40 MG TAB PO SCH (08:11)
[2018-10-03] MEDS: predniSONE 20 MG TAB PO SCH (08:11)
[2018-10-03] MEDS: POLYETHYLENE (MIRALAX) 17 GM PACK PO SCH (08:16)
[2018-10-03] MEDS: cefTRIAXone SODIUM 1,000 MG in DEXTROSE 5% 50 ML IV SCH (09:22)
[2018-10-03] MEDS: WARFARIN SOD 4 MG TAB PO SCH (15:56)
--- NOTE | 2018-10-03 19:25 | Family Medicine Progress Note ---
Date of Service October 03, 2018 Assessment & Plan (1) Pneumonia: 78yo gentleman with pneumonia in setting of COPD exacerbation with concern for lung malignancy noted on CT. 1) Pneumonia -continue Rocephin and Zithromax for 5 day course total -Duonebs as needed. -sputum culture- Gram negative bacilli. Sensitivities to follow -flutter valve/chest physiotherapy -will wean o2 as tolerated. Currently on 3L -pt/ot 2) COPD exacerbation -no wheezing currently -cont prednisone 40mg -Duoneb QID -pt/ot 3) Abnormal CT scan, chest: -report of spiculated density in RLL, 2.8 x 2.8 x 5.5 cm -h/o smoking 1ppd for ~ 20years -Dr. Hairston advises f/u outpt in a few months for repeat CT. Otherwise NTD. 4) Chronic respiratory failure with hypoxia -on 2L chronically at home currently breathing stable, no distress 5) Atrial fibrillation -paced on EKG -takes Amiodarone and Lopressor chronically -continue to hold Coumadin due to elevated INR 6) BPH -continue Flomax 7) GERD -continue Ranitidine 8) Supratherapeutic INR: -no signs of bleeding currently. -Called Dr. Skelton's office- He is on warfarin 5mg for 6 days and takes half a tab on Sundays every week. Last INR was 1/10 at a level of 1.01. -Started on warfarin 4mg Oct 02 (dose decreased by 10%). Trend INRs. Today 1.4 (downtrending) -unclear etiology of currently supratherapeutic INR, perhaps not eating well recently 9) History of melena -pt has a history of hemorrhoids. However, could be a sign of GI malignancy. -Per Dr. Skelton's office, 2011 colonoscopy showed no masses but medium sized external hemorrhoids with no evidence of thrombosis. -FOBT pending 10) Constipation -started colace and miralax 11) Trouble swallowing -speech swallow eval--> soft bite size diet recommended FULL DVT Prophylaxis: Warfarin 4 mg PO daily Supervising Physician Co-Signing Physician Notes Attending attestation Pt seen and examined in concert with Dr. Mendes. In agreement with the documented findings as noted in the resident documentation with any exceptions or additions as noted here. Patient reports gradual improvement in fatigue and overall shortness of breath. Tolerating POI well at bedside. Denies symptoms of aspiration on inquiry. On examination, decreased breathsounds throught worse at bases with minimal wheeze. S1/S2 nl RRR no MCG. COPD exacerbation with abnormal CT concerning for lung cancer � Complete course of azithromycin and prednisone 40mg. Duoneb q4P. S/S evaluation pending for evaluation of ?aspiration. Chest PT. 2L O2 baseline. Ranitidine for GI protection Supratherapeutic INR � decreased to 1.7, hgb stable. Awaiting FOBT. Continue warfarin @ 4mg Atrial fibrillation � continue amiodarone and metoprolol Else as noted in resident documentation. Subjective 78 y/o M found in bed this AM in NAD. Reports no acute overnight events. Denies any CP, wheezing, SOB, cough. Tolerating PO intake. No issues voiding. Pt has no other concerns or complaints. Physical Exam 2 Vital Signs (Past 24 Hours): Last Vital Signs Temp 36.8 C 10/03/18 15:00 Pulse 90 10/03/18 18:47 Resp 20 10/03/18 18:47 BP 114/77 10/03/18 15:00 Pulse Ox 96 10/03/18 18:47 Constitutional: WD/WN, vitals as above Eyes: PERRL, conjunctivae normal, anicteric sclerae ENMT: external ear and nose normal, oropharynx normal Respiratory: decreased breath sounds b/l Cardiovascular: RRR, no murmur, no edema Gastrointestinal (Abdomen): normal bowel sounds, soft, nontender, no hepatosplenomegaly Skin: no rashes, warm and dry Psychiatric: A+Ox3, euthymic affect Resident Activity Tracking Resident Involvement: Resident Care Provided Care Provided: Adult Hospital Medicine
[2018-10-04] MEDS: LEVOTHYROXINE SODIUM 50 MCG TABLET PO SCH (05:49)
[2018-10-04 06:03] LABS: Basophils # (auto) 0.01 K/uL (0-0.2); Basophils % (auto) 0.1 %; Eosinophils # (auto) 0.12 K/uL (0-0.5); Eosinophils % (auto) 1.1 %; Hematocrit (blood only) 36.3 % (42-52); Hemoglobin 11.2 g/dL (14.0-18.0); Immature Granulocytes # (auto) 0.04 K/uL (0.00-0.02); Immature Granulocytes % (auto) 0.4 %; Lymphocytes # (auto) 1.03 K/uL (1.2-3.4); Lymphocytes % (auto) 9.8 %; Mean Corpuscular Hgb Conc 30.9 g/dL (32-36); Mean Corpuscular Volume 109.3 fL (80-100); Mean Platelet Volume 10.7 fL (7.4-10.4); Monocytes # (auto) 0.91 K/uL (0.11-0.59); Monocytes % (auto) 8.6 %; Neutrophils # (auto) 8.45 K/uL (1.4-6.5); Platelet Count 269 K/uL (130-400); RDW Coefficient of Variation 13.4 % (11.5-14.5); RDW Standard Deviation 53.9 fL (36.4-46.3); Red Blood Count 3.32 M/uL (4.7-6.1); White Blood Count 10.56 K/uL (4.8-10.8)
[2018-10-04 06:26] LABS: INR 1.9 (0.9-1.1); Prothrombin Time 18.5 Seconds (9.0-12.0)
[2018-10-04 06:42] LABS: Albumin Globulin Ratio 0.8 (0.9-2); Albumin Level 2.7 gm/dl (3.4-5.0); BUN Creatinine Ratio 45.8 (10-20); Bilirubin,Total 0.7 mg/dl (0.2-1); Calcium 8.4 mg/dl (8.5-10.1); Creatinine Clr Calc Pharmacy 56.3 ml/min; Est GFR (African American) 97.2; Est GFR (Non-African American) 83.9; Globulin 3.2 gm/dl (2.5-4.0); Potassium 4.6 mmol/L (3.5-5.1); Total Protein 5.9 gm/dl (6.4-8.2)
[2018-10-04] MEDS: GABAPENTIN 300 MG CAP PO SCH ×2 (07:36→13:30)
[2018-10-04] MEDS: AZITHROMYCIN 250 MG TAB PO SCH (07:36)
[2018-10-04] MEDS: METOPROLOL TARTRATE 25 MG TAB PO SCH (07:36)
[2018-10-04] MEDS: POLYETHYLENE (MIRALAX) 17 GM PACK PO SCH (07:36)
[2018-10-04] MEDS: predniSONE 20 MG TAB PO SCH (07:36)
[2018-10-04] MEDS: TAMSULOSIN HCL 0.4 MG CAP PO SCH (07:37)
[2018-10-04] MEDS: AMIODARONE 200 MG TAB PO SCH (07:37)
[2018-10-04] MEDS: FUROSEMIDE 40 MG TAB PO SCH (07:37)
[2018-10-04] MEDS: ASPIRIN 81 MG ECTAB PO SCH (07:38)
[2018-10-04] MEDS: ALBUT/IPRATROP 3MG/0.5MG NEB 3 ML VIAL NEB SCH ×3 (07:46→15:32)
[2018-10-04] MEDS: cefTRIAXone SODIUM 1,000 MG in DEXTROSE 5% 50 ML IV SCH (08:25)
--- NOTE | 2018-10-04 14:09 | Discharge Summary ---
Date of Service October 04, 2018 Admission HPI Per Admitting Provider 78 yo male with history of COPD and chronic hypoxia, presented to [facility] due to two days of increased dyspnea, increased cough, sputum production. He denies any fever/chills or sweats. Reports that his appetite has been normal for him. No weakness. He has been moving bowels and urinating normally. He denies any significant weight loss in the past several months. He has a significant smoking history for one ppd for at least 40 years, says he quit when he was diagnosed with COPD. He denies any hemoptysis. At [facility] his WBC was normal, Cr was 1.0. A CXR, two views, shows bibasilar infiltrates. The right lower lobe appeared to have a spiculated consolidation concerning for malignancy. CT chest showed a 2.8 x 2.8 x 5.5 cm density that was a little more dense than fluid. A transfer was requested for [facility] since [facility] does not have pulmonology or thoracic surgery in house. Patient arrived in stable condition, no distress. Had no specific complaints except cough which was now non-productive and continued dyspnea. He had been treated with Rocephin and Zithromax at [facility]. Principal Diagnosis PNA in setting of COPD exacerbation Discharge Exam Constitutional WD/WN, vitals as above Eyes PERRL, conjunctivae normal, anicteric sclerae ENMT external ear and nose normal, oropharynx normal Respiratory decreased breath sounds b/l, expiratory wheezing on L side Cardiovascular RRR, no murmur, no edema Gastrointestinal (Abdomen) normal bowel sounds, soft, nontender, no hepatosplenomegaly Skin no rashes, warm and dry Psychiatric A+Ox3, euthymic affect Discharge Data Allergies Allergy/AdvReac Type Severity Reaction Status Date / Time No Known Allergies Allergy Unverified 05/22/15 19:34 Consultations 09/30/18 13:08 Consult Thoracic Surgery Routine 09/30/18 13:10 Consult Case Management - Discharge Planning Routine Hospital Course (1) Pneumonia: 78 y/o M with PMH of COPD, HTN, Afib w/pacemaker was transferred to [facility] on 10/01 from [facility]. Presented to [facility] initially with 2 days of increased dyspnea, increased cough, sputum production. He denied any fever/ chills or sweats, decreased appetite, weakness, significant weight loss, hemoptysis. Pt has a significant smoking history for one ppd for at least 40 years, but quit when he was diagnosed with COPD. At [facility] his WBC was normal , Cr was 1.0. A CXR, two views, showed bibasilar infiltrates. The right lower lobe appeared to have a spiculated consolidation concerning for malignancy. CT chest showed a 2.8 x 2.8 x 5.5 cm density that was a little more dense than fluid. Pt was transferred to [facility] because they did not have pulmonology or thoracic surgery in house. Patient arrived to [facility] in stable condition, no distress. Had no specific complaints except cough which was now non-productive and continued dyspnea. He had been started on Rocephin and Zithromax at [facility]. During pt's stay here, the following medical management/course was followed: 1) Pneumonia in setting of COPD exacerbation -continued on Rocephin and Zithromax for 5 day course total. Completed 4 days at time of d/c. -Madan QID -sputum culture grew Gram negative bacilli -flutter valve/chest physiotherapy -O2 as tolerated. Currently on 3L at time of d/c, sats 96% -pt/ot reported pt did well and did not see need for inpt PT -Given prednisone 40mg PO daily, will cont to taper off once d/c 2) Abnormal CT scan, chest: -report of spiculated density in RLL, 2.8 x 2.8 x 5.5 cm -Thoracic Sx consulted: Dr. Hairston advises f/u outpt in a few months for repeat CT. Otherwise NTD. 3) Chronic respiratory failure with hypoxia -on 2L chronically at home, will cont on d/c -At time of d/c breathing stable, no distress 4) Atrial fibrillation -paced on EKG -Given STATISTICAL ASSISTANT Amiodarone and Lopressor -Held Coumadin initially due to elevated INR on admission 5) BPH -Given STATISTICAL ASSISTANT Flomax 6) GERD -Given STATISTICAL ASSISTANT Ranitidine 7) Supratherapeutic INR: -no signs of bleeding during course of stay -5.3 on admission, 1.9 on d/c -can continue STATISTICAL ASSISTANT warfarin on d/c -continue to monitor for GI bleeds. Pt has a history of hemorrhoids. 2011 colonoscopy showed no masses but medium sized external hemorrhoids with no evidence of thrombosis. 8) Constipation -Pt started on colace and miralax 9) Trouble swallowing -speech swallow eval--> soft bite size diet recommended DVT Prophylaxis given through Warfarin 4 mg PO daily. Pt will continue warfarin on d/c. Pt will be discharged on azithromycin 500 mg PO, which he will take for one additional day. He will be on a prednisone taper as follows: 3 days of 40 mg , 3 days of 30 mg, 3 days of 20 mg, 3 days of 10 mg. Pt advised to get f/u CT chest in 6 months duration to f/u on spiculated consolidation seen on initial CT. At time of d/c, pt has no other acute concerns or complaints. Total Time Total Time Spent Total Time Spent (In Minutes): 30 min Discharge Plan Discharge Items Patient Disposition: Home - Self-Care Reason For Visit: PNEUMONIA Discharge Diagnosis: COPD exacerbation Discharge Goals: Improve function and Increase independence Activity: Resume your previous activity Non-emergency contact: Primary Care Provider Call non-emergency contact if: you have any medication questions and your symptoms worsen Follow-up/Referrals: Carolann Skelton MD [Primary Care Provider] - Addtl Provider Instructions: You were admitted for a pneumonia on top of a COPD exacerbation and were treated for both. The following are instructions for you to follow once you leave [facility]: -Continue antibiotic azithromycin 500 mg PO for one additional day -Continue steroid taper of prednisone as follows: 3 days of 40 mg, 3 days of 30 mg, 3 days of 20 mg, 3 days of 10 mg. -Follow-up with your PCP doctor within one week of dicharge. Your doctor will arrange for a follow-up CT of your chest in 6 months duration to follow-up on on the consolidation seen on your initial CT Prescriptions: New prednisone 20 mg Tablet 40 mg PO DAILY 12 Days Qty: 30 RF: 0 Continue ALBUTEROL SOLN (Ventolin Soln) 0.083 % NEB 1 vial Inhalation 3-4XD PRN (Reason: SOB/Wheezing) Qty: 375 RF: 0 AMIODARONE HCL (PACERONE) 100 MG tablet 100 mg PO DAILY Qty: 30 RF: 0 ASCORBIC ACID 500 MG tablet 500 mg PO DAILY Qty: 0 RF: 0 ASPIRIN (ASPIRIN EC) 81 MG tablet 81 mg PO DAILY Qty: 0 RF: 0 Albuterol (Ventolin) inhaler 2 puff Inhalation Q4 PRN (Reason: Shortness of Breath) Qty: 18 RF: 0 BUDESONIDE/FORMOTEROL FUMARATE (Symbicort 80/4.5 Inhaler) 120 PUFFS/ aerosol 2 puff Inhalation BID Qty: 10 RF: 0 FERROUS SULFATE 325 MG tablet 325 mg PO DAILY Qty: 0 RF: 0 Furosemide 40 MG tablet 40 mg PO DAILY Qty: 30 RF: 0 Gabapentin 300 MG capsule 300 mg PO TID Qty: 90 RF: 0 HYDROCORTISONE (PROCTOSOL HC) 90 APPLN/30 GM cream 1 applic TN 2-4XD PRN (Reason: hemorrhoids) 7 Days Qty: 28.35 RF: 0 LEVOTHYROXINE SODIUM 50 MCG tablet 50 mcg PO DAILY Qty: 30 RF: 0 MOMETASONE FUROATE (NASAL) (NASONEX) 50 MCG/ SPR 1 spray WALLY congestion Qty: 0 RF: 0 Metoprolol Tartrate (Lopressor) (Lopressor) 50 MG tablet 25 mg PO BID Qty: 30 RF: 0 POTASSIUM CHLORIDE MICROENCAPS (POTASSIUM CHLORIDE ER) 10 MEQ tablet 10 meq PO DAILY Qty: 30 RF: 0 PRAVASTATIN SODIUM 40 MG tablet 40 mg PO HS Qty: 30 RF: 0 Ranitidine HCl 150 MG tablet 150 mg PO DAILY Qty: 30 RF: 0 TIOTROPIUM BROMIDE (Spiriva Handihaler) 30 PUFF/540 MCG AEROSOL,POWDR 1 puff Inhalation DAILY Qty: 30 RF: 0 Tamsulosin HCl 0.4 MG capsule 0.4 mg PO DAILY Qty: 30 RF: 0 WARFARIN SODIUM 1 MG tablet 3 mg PO QPM 90 Days Qty: 90 RF: 0 Levofloxacin 250 MG tablet 250 mg PO DAILY@11 7 Days Qty: 0 RF: 0 PREDNISONE (STERAPRED 12 DAY) 5 MG YOCASTA 1 pkg PO UD Qty: 1 RF: 0 Stand-Alone Forms: [facility] Discharge Orders: Discharge Order (Routine); Ordered 10/04/18 Ordered By: Fan Mendes Admission Data Admit Date/Time: 09/30/18 13:07 Attending Provider: Az Dey Admit Provider: Doron Maldonado Primary Care Provider: Olanta,Carolann Other Providers: Zak Hairston Service: Medical Other Interventions: Discharge Summary Assessment (RN) Last Done: 10/04/18 16:07 DC Date/Time DO NOT enter until pt leaves facility: 10/04/18 17:40 Supervising Physician Co-Signing Physician Notes Attending attestation Pt seen and examined in concert with Dr. Mendes. In agreement with the documented findings as noted in the resident documentation with any exceptions or additions as noted here. Considerable improvement in shortness of breath and fatigue from previous, approaching baseline per patient. On examination, S1/S2 nl IRR, decreased BS throughout. Baseline O2 use 3L at home per patient. COPD exacerbation with abnormal CT concerning for lung cancer � Complete course of azithromycin and prednisone 40mg. Duoneb q4P. S/S recommendations per documentation. Continue ranitidine while on prednisone. Atrial fibrillation � continue amiodarone and metoprolol. Warfarin 4mg ( decreased from 5mg) Else as noted in resident documentation. 34 minutes spent with this patient in the process of discharge. Resident Activity Tracking Resident Involvement: Resident Care Provided Care Provided: Adult Hospital Medicine
[2018-10-04] MEDS: WARFARIN SOD 4 MG TAB PO SCH (15:39)
== END 2018-10-04 17:40 | disposition home or self-care (01) | DRG 190 ==
LOC: SUATTDRO 13:07 → 2W 13:07 → 4W 10-04 01:28
DX: E78.5 Hyperlipidemia, unspecified; K21.9 Gastro-esophageal reflux disease without esophagitis; J44.1 Chronic obstructive pulmonary disease with (acute) exacerbation; J18.9 Pneumonia, unspecified organism; J98.4 Other disorders of lung; Z99.81 Dependence on supplemental oxygen; J96.11 Chronic respiratory failure with hypoxia; E03.9 Hypothyroidism, unspecified; I10 Essential (primary) hypertension; Z82.49 Family history of ischemic heart disease and other diseases of the circulatory system; Z87.891 Personal history of nicotine dependence; Z79.82 Long term (current) use of aspirin; I48.91 Unspecified atrial fibrillation; N40.0 Benign prostatic hyperplasia without lower urinary tract symptoms; K59.00 Constipation, unspecified; Z95.0 Presence of cardiac pacemaker; Z79.01 Long term (current) use of anticoagulants; R13.10 Dysphagia, unspecified